=== PATIENT | male | born 1975 | race Caucasian/White ===

== ENCOUNTER 2017-03-05 14:11 | Emergency (ER) | payer SELFPAY ==
[~2017-03-05] VITALS: Ht 182.9 cm; Wt 145.5 kg
[2017-03-05 14:13] VITALS: BP 138/81; PULSE 116; TEMP 98.8
== END 2017-03-05 15:58 | disposition home or self-care (01) ==
LOC: COL.ER 14:11
DX: S81.012A Laceration without foreign body, left knee, initial encounter (principal); W25.XXXA Contact with sharp glass, initial encounter; Z23 Encounter for immunization